=== PATIENT | male | born 1945 ===

== ENCOUNTER 2019-09-15 11:06 | Day surgery (SDC) | payer MEDICARE, OTHER ==
[~2019-09-15 11:06] MED LIST: Buffered Lidocaine 1% SYRIN* 1 ML/SYRINGE INTRADERM ONE
[2019-09-15] MEDS ORDERED: Midazolam* 1 MG/ML 2 ML VIAL (2 MG) ONE (11:56)
[2019-09-15] MEDS ORDERED: Cyclopentolate 1% OPTH.SOL* 2 ML BTL ONE (13:42)
[2019-09-15] MEDS ORDERED: Phenylephrine OPHTH SOL 2.5%* 2 ML ONE (13:42)
[2019-09-15] MEDS ORDERED: Ketorolac 0.5% OPHTH (NF) 0.5 % 5 ML BTL ONE (13:42)
[2019-09-15] MEDS ORDERED: Neomycin/Polymy/Dex OPHTH.OIN* 3.5 GM ONE (13:42)
[2019-09-15] MEDS ORDERED: Tetracaine 0.5% OPTH.SOL 4 ML* 1 DROP BTL ONE (13:42)
[2019-09-15] MEDS ORDERED: Tropicamide 1% OPTH.SOL* BTL ONE (13:42)
[2019-09-15] MEDS ORDERED: Phenylephr/Ketorolac 1%/0.3% OPH DROP BTL ONE (13:42)
[2019-09-15] MEDS ORDERED: Lidocaine 1% MPF ** 5 ML VIAL ONE (13:42)
[2019-09-15 13:52] VITALS: BP 130/84
--- NOTE | 2019-09-15 20:59 | OP ---
DATE OF OPERATION: 09/15/19 - [facility] DATE OF : 43 SURGEON: José Birmingham MD. CLINICAL PSYCHOLOGY PROFESSOR: None. ANESTHESIA: Topical with intravenous sedation. PRE-OP DIAGNOSIS: Cataract with small pupil, right eye. POST-OP DIAGNOSIS: Cataract with small pupil, right eye. OPERATIVE PROCEDURE: Phacoemulsification and cataract extraction with posterior chamber intraocular lens implant, right eye. COMPLICATIONS: None. BLOOD LOSS: None. DESCRIPTION OF PROCEDURE: The patient was brought to the operating room and received intravenous sedation. A drop of tetracaine was placed in his right eye. The patient was prepped and draped in the usual sterile fashion for ophthalmic surgery and attention was directed to the right eye where a speculum was placed. A paracentesis was created at the 11 o'clock position and 0.1 cc of 1% preservative- free lidocaine was injected into the anterior chamber followed by DisCoVisc. The eye was digitally stabilized while a 2.75 mm keratome was used to create a triplanar clear corneal incision at the 9 o'clock position. It was noted that the pupil failed to dilate even with viscodilation or Omidria solution drawn from the irrigating solution bag and injected into the anterior chamber. Thus, a Malyugin ring was opened and placed atraumatically into the eye capturing the pupil in 4 quadrants. A continuous curvilinear capsulorrhexis was created with the cystotome and Utrata forceps. BSS on a cannula was used to hydrodissect the lens from the capsule. Phacoemulsification was performed in a divide-and- conquer technique to create 4 fragments, which were removed. Residual cortical material was removed with irrigation and aspiration. The capsular bag was polished. An AU00T0 23.0 diopter lens was inserted into the capsular bag. DisCoVisc was removed from posterior to the lens. Supplemental DisCoVisc was added anterior to lens. The Malyugin ring was atraumatically removed from the eye. Irrigation and aspiration was performed to remove all DisCoVisc from the eye. BSS and the cannula were used to hydrate the corneal stroma and seal the wound. At the end of the case, the pupil was round and approximately 3.5 mm. The eye pressure appeared normal and the wound was watertight. The lens were centered and stable. The speculum was removed. Topical Maxitrol ointment was placed on the surface of the eye. The eye was closed, patched, and shielded and the patient was sent to the recovery room in stable condition with postop instructions and followup appointment given. [id number]/[facility] #: [id number] SARAH
== END 2019-09-15 13:40 | disposition home or self-care (01) ==
LOC: OREAST 11:06
PROVIDERS: ATTEND Ophthalmology
PROC: 08RJ3JZ Replacement of Right Lens with Synthetic Substitute, Percutaneous Approach (ICD-10-PCS; principal; 2019-09-15 12:15)
DX: H25.11 Age-related nuclear cataract, right eye (principal); E11.9 Type 2 diabetes mellitus without complications; E78.00 Pure hypercholesterolemia, unspecified; Z79.84 Long term (current) use of oral hypoglycemic drugs
CPT/HCPCS: A9270-GY; J1097; J2250; V2632

== ENCOUNTER 2019-09-22 07:01 | Day surgery (SDC) | payer MEDICARE, OTHER ==
[~2019-09-22 07:01] MED LIST changes: +Acetaminophen TAB* 325 MG PO PRN
[2019-09-22] MEDS ORDERED: Midazolam* 1 MG/ML 5 ML VIAL (5 MG) ONE (07:37)
[2019-09-22] MEDS ORDERED: fentaNYL* 50 MCG/ML 2 ML VIAL (100 MCG VIAL) ONE (07:37)
[2019-09-22 08:42] VITALS: BP 137/93
--- NOTE | 2019-09-22 10:26 | OP ---
DATE OF OPERATION: 09/22/19 [facility] DATE OF : 43 SURGEON: Dr. José Birmingham MILL DRESSER: None. ANESTHESIA: Topical with intravenous sedation. PRE-OP DIAGNOSIS: Cataract, left eye. POST-OP DIAGNOSIS: Cataract, left eye. OPERATIVE PROCEDURE: Phacoemulsification and cataract extraction with posterior chamber intraocular lens implant, left eye. COMPLICATIONS: None. BLOOD LOSS: None. DESCRIPTION OF PROCEDURE: The patient was brought to the operating room and received a small amount of intravenous sedation. A drop of Tetracaine was placed in the patient's left eye. The patient was prepped and draped in the usual sterile fashion for ophthalmic surgery and attention was directed to the left eye where a speculum was placed. A paracentesis was created at the 5 o' clock position and 0.1 cc of 1 percent preservative-free Lidocaine was injected into the anterior chamber followed by DisCoVisc. The eye was digitally stabilized while a 2.75 mm keratome was used to create a triplanar clear corneal incision at the 3 o'clock position. A continuous curvilinear capsulorrhexis was created with a cystotome and Utrata forceps. BSS on a cannula was used to hydrodissect the lens from the capsule. Phacoemulsification was performed in a ltgmrp-cyn-[id number] technique to create four fragments which were removed. Residual cortical material was removed with irrigation and aspiration. DisCoVisc was used to inflate the capsular bag and an AU00T0 20.0 diopter lens was folded and inserted into the capsular bag. DisCoVisc was removed using irrigation and aspiration. BSS on a cannula was used to hydrate the corneal stroma and seal the wound. At the end of the case the pupil was round and the lens was centered. The eye was of normal pressure and the wound was water tight. The speculum was removed and topical Maxitrol ointment was placed on the surface of the eye. The eye was closed, patched and shielded and the patient was sent to the recovery room in stable condition with post operative instructions and follow-up appointment given. [id number]/[facility] #: [id number] SARAH
== END 2019-09-22 08:55 | disposition home or self-care (01) ==
LOC: OREAST 07:01
PROVIDERS: ATTEND Ophthalmology
DX: H25.12 Age-related nuclear cataract, left eye (principal); E11.9 Type 2 diabetes mellitus without complications; Z79.84 Long term (current) use of oral hypoglycemic drugs; E78.00 Pure hypercholesterolemia, unspecified; E78.5 Hyperlipidemia, unspecified
CPT/HCPCS: J2250; J3010; V2632